=== PATIENT | female | born 1985 | race Caucasian/White ===

== ENCOUNTER 2018-09-30 14:40 | Emergency (ER) | payer BC ==
[~2018-09-30] VITALS: Ht 162.6 cm; Wt 59.0 kg
[2018-09-30 14:48] VITALS: BP_SYST 107
--- NOTE | 2018-09-30 15:00 | NUR ---
ER Dr. Weaver at bedside examining patient.
--- NOTE | 2018-09-30 15:04 | NUR ---
Patient to ER bed 07 to gown for evaluation. Side rails up.
--- NOTE | 2018-09-30 15:05 | NUR ---
Pt, currently 17 weeks , AAOx4 ambulated into ED c/o lower abdominal pain x 3 hours accompanying 2 episode of vomiting. Skin pink dry and warm, breathing even and unlabored. No other injuries/complaints per pt/noted. Will continue to monitor.
[2018-09-30] MEDS ORDERED: ACETAMINOPHEN 500 MG TABLET PO ONE (15:15)
--- NOTE | 2018-09-30 15:18 | NUR ---
Pt taken to radiology in stable condition
[2018-09-30 15:25] LABS: BASOPHILS # (AUTO) 0.1 K/uL (0.0-0.2); BASOPHILS % (AUTO) 0.5 % (0.0-2.0); EOSINOPHILS % (AUTO) 0.2 % (0.0-4.0); HEMATOCRIT 38.5 % (36-48); HEMOGLOBIN 12.8 g/dL (12.0-16.0); LYMPHOCYTES % (AUTO) 7.8 % (20.5-51.5); MEAN CORPUSCULAR HEMOGLOBIN 31 pg (27-31); MEAN CORPUSCULAR HGB CONC 33 % (32-36); MEAN CORPUSCULAR VOLUME 93 fL (79.0-98.0); MONOCYTES # (AUTO) 0.4 K/uL (0.0-1.0); MONOCYTES % (AUTO) 3.3 % (1.7-9.3); NEUTROPHILS # (AUTO) 11.5 K/uL (1.8-7.7); NEUTROPHILS % (AUTO) 88.2 % (40.0-70.0); PLATELET COUNT (AUTO) 207 K/uL (130-430); RED BLOOD CELL COUNT(AUTO) 4.14 MIL/uL (4.2-6.2); RED CELL DISTRIBUTION WIDTH 12.5 % (9.0-15.0)
--- NOTE | 2018-09-30 15:44 | NUR ---
Pt returned from ultrasound via wheelchairin stable condition
[2018-09-30 16:09] LABS: INR 0.9 (0.8-1.2); PROTHROMBIN TIME 9.6 SECS (9.5-12.5)
--- NOTE | 2018-09-30 16:34 | NUR ---
ER Dr. CANELA at bedside UPDATING patient.
--- NOTE | 2018-09-30 16:42 | NUR ---
Patient given written and verbal discharge instructions and verbalizes understanding. ER MD CANELA discussed with patient the results and treatment provided. Patient in stable condition. ID arm band removed. IV catheter removed intact and dressing applied, no active bleeding. NO Rx given. Patient educated on pain management and to follow up with PMD. Pain Scale 2. DR. CANELA AWARE. Opportunity for questions provided and answered. Medication side effect fact sheet provided.
== END 2018-09-30 16:43 | disposition home or self-care (01) ==
LOC: SED 14:40
DX: O26.892 Other specified pregnancy related conditions, second trimester (principal); R10.30 Lower abdominal pain, unspecified; Z3A.17 17 weeks gestation of pregnancy
CPT/HCPCS: 36415; 76805-TC; 81025; 84702-TC; 85025; 85610-TC; 85730-TC; 86900; 86901; 99284